=== PATIENT | female | born 1935 | race Two or more races ===

== ENCOUNTER 2023-03-21 20:27 | Emergency (ER) | payer OTHER ==
[~2023-03-21] VITALS: Ht 167.6 cm; Wt 49.4 kg
[2023-03-21] MEDS ORDERED: METOPROLOL SUC100 MG PO (20:38)
[2023-03-21] MEDS ORDERED: HYDRALAZINE HCL25 MG PO (20:38)
[2023-03-21] MEDS ORDERED: ALL DAY ALLERGY10 MG PO (20:38)
[2023-03-21] MEDS ORDERED: BUSPIRONE HCL5 MG PO (20:39)
[2023-03-21] MEDS ORDERED: NORVASC2.5 MG PO (20:39)
[2023-03-22 01:27] LABS: HEMOGLOBIN 12.8 g/dL (12.0-15.00); MEAN CELL VOLUME 85.8 fL (80.00-100.00); MEAN CORPUSCULAR HEMOGLOBIN 32.2 pg (27.00-32.0); MEAN CORPUSCULAR HGB CONC 37.5 g/dl (32.0-36.0); PLATELET COUNT 305 K/uL (150-450); RED BLOOD COUNT 3.96 M/uL (4.00-6.00); RED CELL DISTRIBUTION WIDTH 14.4 % (11.5-14.5)
[2023-03-22 01:42] LABS: ALBUMIN 3.6 gm/dL (3.4-5.0); BILIRUBIN TOTAL 3.96 mg/dL (0.3-1.2); CALCIUM 9.5 mg/dL (8.5-10.1); CREATININE SERUM 0.64 mg/dL (0.55-1.02); GFR 88.19; GLOBULINA 3.2 G/DL (2.4-3.5); POTASSIUM 3.24 mEq/L (3.5-5.1); TOTAL PROTEIN 6.8 gm/dL (6.4-8.2)
[2023-03-22 02:13] LABS: PH,URINE 5.5 (5.0-8.0); URINE APPEARANCE Turbid; URINE BILIRRUBIN Negative (NEGATIVE); URINE BLOOD Trace; URINE COLOR Dark Yellow; URINE GLUCOSE Negative (NEGATIVE); URINE LEUKOCYTE Large; URINE NITRATE Negative; URINE PROTEIN Trace (NEGATIVE)
[2023-03-22 02:14] LABS: URINE EPITHELIAL CELLS 34.7 uL (0.0-38.8); URINE RBC 10.8 uL (0.0-20.8)
[2023-03-22 02:30] LABS: URINE BACTERIA > 9821.5 uL (0.0-1933); URINE MUCUS MODERATE
[2023-03-22 08:59] LABS: CALCIUM 8.7 mg/dL (8.5-10.1); CREATININE SERUM 0.48 mg/dL (0.55-1.02); GFR 122.92; POTASSIUM 3.36 mEq/L (3.5-5.1)
== END 2023-03-22 11:52 | disposition home or self-care (01) ==
LOC: ER 20:27
PROVIDERS: General Practice
DX: R63.0 Anorexia (principal); F32.89 Other specified depressive episodes; I10 Essential (primary) hypertension; Z88.6 Allergy status to analgesic agent; Z88.8 Allergy status to other drugs, medicaments and biological substances; N39.0 Urinary tract infection, site not specified
CPT/HCPCS: 36415; 96365; 96366; 99284; J0696; J3490; J7030

== ENCOUNTER 2023-05-14 10:42 | Outpatient (CLI) | payer OTHER ==
[~2023-05-14 10:42] MED LIST: ALL DAY ALLERGY10 MG PO; BUSPIRONE HCL5 MG PO; HYDRALAZINE HCL25 MG PO; METOPROLOL SUC100 MG PO; NORVASC2.5 MG PO
== END 2023-05-14 10:43 | disposition home or self-care (01) ==
LOC: NUCLEAR 10:42
PROVIDERS: ATTEND Psychiatry & Neurology Psychiatry
DX: I67.9 Cerebrovascular disease, unspecified (principal); G45.1 Carotid artery syndrome (hemispheric)